=== PATIENT | female | born 1950 | race Caucasian/White ===

== ENCOUNTER 2023-11-03 13:56 | Emergency (ER) | payer MEDICARE, OTHER, SELFPAY ==
[2023-11-03 13:58] VITALS: BP 155/100
--- NOTE | 2023-11-03 15:11 | ED.GENMED ---
History of Present Illness
<Jeannette Bentley PA-C - Last Filed: 11/03/23 18:48>
General
Chief Complaint: Cough
Source: patient
Exam Limitations: none
Time Seen by Provider: 11/03/23 15:10
Nursing documentation reviewed up to this point in time: agreed with
Travel History
Have you had any contact with someone who has COVID-19?: No
Do you have any symptoms of coronavirus? Fever > 100 degrees, chills, cough, shortness of breath, sore throat, loss of taste or smell, muscle aches, or headache?: No
History of Present Illness
History of Present Illness:
73-year old female with past medical history of hyperlipidemia, chronic bronchitis that has since apparently resolved, presenting to the emergency department today with persistent cough and cold like symptoms for the past 5 days. Patient states
that while she has had bad colds before, she has never had this much sputum production. Patient states that she has been coughing up yellow and green sputum. She denies hemoptysis. Also states that she has had excessive fatigue and chills.
Patient denies any fever. Patient denies any swelling in her lower legs. Patient denies any recent long distance travel. Patient states that she has occasional pain in her chest if she has been coughing a lot. Patient denies any abdominal pain,
nausea, vomiting. Patient has been seen by urgent care was negative for COVID and flu.
Past History
<Jeannette Bentley PA-C - Last Filed: 11/03/23 18:48>
Past History
ED Past Medical History: None
ED Past Surgical History: Gynecological
Social History
Tobacco: Non-smoker
Alcohol: None
Drug: None
Personal:
Living: with family
Review of Systems
<Jeannette Bentley PA-C - Last Filed: 11/03/23 18:48>
Review of Systems
All Other Systems: ROS reviewed and negative except as documented in HPI and ROS
Phy Exam
<Jeannette Bentley PA-C - Last Filed: 11/03/23 18:48>
Physical Exam
Physical Exam:
Vitals: Patient's vital signs are stable
General: Patient is well-appearing in no acute distress
Skin: Skin is warm and dry, no rashes or lesions
Head: normocephalic, atraumatic
Eyes: EOMs intact. PERRLA. Bilateral conjunctival clear. No scleral erythema.
Throat: Mild pharyngeal erythema. No tonsillar hypertrophy, no exudates.
Neck: No cervical lymphadenopathy
Cardiac: Regular rate and rhythm, no murmurs
Pulm: Normal respiratory effort, no wheezes rales or rhonchi
Abdomen: No abdominal tenderness
Neuro: Cranial nerves II through XII intact, no focal neurologic deficits.
Course
<Jeannette Bentley PA-C - Last Filed: 11/03/23 18:48>
Orders/Labs/Results
Orders:
Orders
11/03/23 15:31
CR Chest - 2 Views Urgent
Comment:
Reason For Exam: shortness of breath
11/03/23 15:57
Ipratropium/Albuterol Sulfate [Duoneb] 3 ml INH R NOW STA
11/03/23 16:46
Complete Blood Count/With Diff Urgent
Comprehensive Metabolic Panel Urgent
11/03/23 18:16
Dexamethasone Sod Phosphate [Decadron] 10 mg IV NOW STA
Abnormal Lab Results
11/03/23
16:46
RBC 3.90 L 10^6/uL
(4.20-5.40)
MCH 32.3 H pg
(27.0-31.0)
Absolute Monos (auto) 0.8 H 10^3/uL
(0.1-0.6)
Glucose 104 H mg/dl
(70-99)
Total Protein 6.0 L g/dl
(6.3-8.2)
11/03/23 16:46
11/03/23 16:46
Vital Signs
Initial and Last Documented VS:
Initial Vital Signs
Temp Pulse Resp BP Pulse Ox
98.1 F 80 18 155/100 98
11/03/23 13:58 11/03/23 13:58 11/03/23 13:58 11/03/23 13:58 11/03/23 13:58
Last Documented Vital Signs
Temp Pulse Resp BP Pulse Ox
98.1 F 79 18 130/79 99
11/03/23 13:58 11/03/23 18:29 11/03/23 18:29 11/03/23 18:29 11/03/23 18:29
<Matthew Loera, DO - Last Filed: 11/03/23 18:20>
Orders/Labs/Results
Orders:
Orders
11/03/23 15:31
CR Chest - 2 Views Urgent
Comment:
Reason For Exam: shortness of breath
11/03/23 15:57
Ipratropium/Albuterol Sulfate [Duoneb] 3 ml INH R NOW STA
11/03/23 16:46
Complete Blood Count/With Diff Urgent
Comprehensive Metabolic Panel Urgent
11/03/23 18:16
Dexamethasone Sod Phosphate [Decadron] 10 mg IV NOW STA
Abnormal Lab Results
11/03/23
16:46
RBC 3.90 L 10^6/uL
(4.20-5.40)
MCH 32.3 H pg
(27.0-31.0)
Absolute Monos (auto) 0.8 H 10^3/uL
(0.1-0.6)
Glucose 104 H mg/dl
(70-99)
Total Protein 6.0 L g/dl
(6.3-8.2)
11/03/23 16:46
11/03/23 16:46
Vital Signs
Initial and Last Documented VS:
Initial Vital Signs
Temp Pulse Resp BP Pulse Ox
98.1 F 80 18 155/100 98
11/03/23 13:58 11/03/23 13:58 11/03/23 13:58 11/03/23 13:58 11/03/23 13:58
Last Documented Vital Signs
Temp Pulse Resp BP Pulse Ox
98.1 F 79 18 130/79 99
11/03/23 13:58 11/03/23 18:29 11/03/23 18:29 11/03/23 18:29 11/03/23 18:29
<Jeannette Bentley PA-C - Last Filed: 11/03/23 18:48>
MDM/Problems Addressed
Differential Diagnosis Includes:
Differentials include pneumonia, PE, respiratory tract infection, chronic bronchitis
MDM/Problems Addressed:
cough and cold symptoms
Chronic conditions affecting care: HTN and Other (Hypothyroidism, hyperlipidemia)
Acute Exacerbation and/or Progression of Chronic Illness: HTN
<Jeannette Bentley PA-C - Last Filed: 11/03/23 18:48>
*Pulse Oximetry
Patient hypoxic: no
*Critical Care Note
Total Time (30-74mins, 75-104mins- exclusive of procedures): Not Applicable
Data Reviewed
Review of Other/Old Records Reveals: Records (Reviewed previous records from ER physician documentation 12/29/2021, reviewed ER physician mentation from 12/23/2019)
Source: patient and records
Prescriptions/Medications Considered But Not Given:
Considered D-dimer however patient has no PE risk factors, her vital signs are stable, and there is a alternative diagnosis to explain her symptoms.
<Jeannette Bentley PA-C - Last Filed: 11/03/23 18:48>
Patient Management
Escalation/DeEscalation of care consider admission/obs:
73-year old female with past medical history of hyperlipidemia, chronic bronchitis that has since apparently resolved, presenting to the emergency department today with persistent cough and cold like symptoms for the past 5 days. Patient on exam
has mild wheezing heard and conversational dyspnea. Her vital signs are stable, she is afebrile, not hypoxic. Her CBC and CMP are unremarkable, her chest x-ray is negative for any acute cardiopulmonary process. Tried a DuoNeb treatment for this
patient, she states that this did not help her symptoms and made her cough worse. Patient states that Tessalon Perles do not work with her cough, and she states that [id number] cough medications do not help her either. We will send a steroid
Dosepak to her pharmacy at this point, considering other methods have not helped with her cough and cold-like symptoms. Symptoms likely due to possible acute on chronic bronchitis. Patient stable for discharge.
ED Attending Note
<Jeannette Bentley PA-C - Last Filed: 11/03/23 18:48>
-
Portions of this chart may have been created with voice recognition software.� Occasional wrong word or��sound alike� substitutions may have occurred due to the inherent limitations of voice recognition software.
<Matthew Loera DO - Last Filed: 11/03/23 18:20>
ED Attending Note
Patient seen and examined by attending physician: Yes
I performed the substantive portion of visit, reviewed & personally made and approve the management plan that is documented in note by myself or MAGALIE.: Yes
ED Attending Note:
73-year-old female cough congestion body aches productive sputum negative COVID and flu at an urgent care wheezing here better with nebs imaging noted sounds like bronchitis, will treat with a short course of steroids sideration for short course of
antibiotics due to change in sputum
Discharge Plan
Departure
Patient Disposition: Home (Routine Discharge)
Date of Disposition: 11/03/23
Time of Disposition: 18:17
Patient with high blood pressure during this ER visit?: Yes
Condition: Good
Discharge Problem:
Acute bronchitis
Instructions: Acute Bronchitis, Adult (DC), Cough, Adult (DC), BLOOD PRESSURE
Prescriptions:
New
methylprednisolone [Medrol (Harshal)] 4 mg tablets,dose pack
See Rx Instructions .ROUTE .COMPLEX Qty: 21 0RF
Rx Instructions:
orally per package directions
doxycycline hyclate 100 mg capsule
100 mg PO DAILY Qty: 5 0RF
No Action
levofloxacin 500 MG tablet
500 mg PO DAILY
Patient Comments:
patient to take for 10 days
albuterol sulfate 1 PUFF HFA aerosol inhaler
2 puff inhalation R Q4HPRN PRN (Reason: SOB)
fluticasone propionate 1 SPRAY spray,suspension
2 spray intranasal BID
ibuprofen 200 MG tablet
200 mg PO Q4HPRN PRN (Reason: pain)
omeprazole 20 MG capsule,delayed release(DR/EC)
20 mg PO DAILY
benzonatate 100 MG capsule
100 mg PO TIDPRN PRN (Reason: recurrent cough) Qty: 20 0RF
albuterol sulfate [Proventil HFA] 90 MCG/PUFF HFA aerosol inhaler
1 puff inhalation Q4HPRN PRN (Reason: shortness of breath) Qty: 1 0RF
Referrals:
Dannie Chavarria MD [Family Provider] -
Activity Restrictions/Additional Instructions:
We have sent Medrol Dosepak to your pharmacy. Please follow package instructions for dosing.
Please return emergency department for any new or worsening symptoms, chest pain, worsening of your shortness of breath, fevers or chills, dizziness, lightheadedness, weakness, or any other concerns.
Please follow-up with your primary care provider.
Interventions
Interventions:
*Risk Screen - Suicide Last Done: 11/03/23 13:58
*General Assessment Last Done: 11/03/23 13:58
*Neglect/Abuse Screening Last Done: 11/03/23 13:58
ED- Fall Risk Assessment Last Done: 11/03/23 18:15
*ED COVID-19 Vaccine History Last Done: 11/03/23 13:58
*Nursing Disposition Last Done: 11/03/23 18:44
ED- Pulmonary Assessment Last Done: 11/03/23 18:15
Discharge Date and Time
Discharge Date/Time: 11/03/23 18:44
Print Language: KYRGYZ
[2023-11-03] MEDS: DUONEB 3 ML INH (16:53)
[2023-11-03 16:56] LABS: % Basophils 0.5 % (0-2); % Eosinophils 1.3 % (0-6); % Immature Granulocytes 0.2 % (0-0.5); % Lymphocytes 23.2 % (20.5-51.1); % Monocytes 8.5 % (1.7-9.3); % Neutrophils 66.3 % (42.2-75.2); Absolute Basophils 0.1 10^3/uL (0-0.2); Absolute Eosinophils 0.1 10^3/uL (0-0.7); Absolute Lymphocytes 2.3 10^3/uL (1.2-3.4); Absolute Monocytes 0.8 10^3/uL (0.1-0.6); Absolute Neutrophils 6.4 10^3/uL (1.4-6.5); Hematocrit 37.1 % (37.0-47.0); Hemoglobin 12.6 g/dL (12.0-16.0); Mean Corpuscular Hgb 32.3 pg (27.0-31.0); Mean Corpuscular Volume 95.1 fL (81.0-99.0); Nucleated Red Blood Cells % 0 %; Platelet Count 172 10^3/uL (130-400); Red Cell Dist. Width 12.8 % (11.5-14.5); White Blood Cell Count 9.7 10^3/uL (4.8-10.8)
[2023-11-03 17:15] LABS: ALT (SGPT) 21 U/L (0-35); AST (SGOT) 30 U/L (14-36); Albumin 3.9 g/dl (3.5-5.0); Alkaline Phosphatase 46 U/L (38-126); Blood Urea Nitrogen 16 mg/dl (7-17); Calcium 9.9 mg/dl (8.4-10.2); Carbon Dioxide 30 mmol/L (22-30); Chloride 102 mmol/L (98-107); Glucose 104 mg/dl (70-99); Potassium 4.4 mmol/L (3.5-5.1); Sodium 136 mmol/L (135-145); Total Bilirubin 0.4 mg/dl (0.2-1.3); eGFR > 60.00
[2023-11-03] MEDS: DECADRON 10 MG IV (18:25)
[2023-11-03 18:29] VITALS: BP 130/79
== END 2023-11-03 18:44 | disposition home or self-care (01) ==
LOC: EMR 13:56
PROVIDERS: Physician Assistant; EMERGENCY PHYSICIAN Emergency Medicine; FAMILY PHYSICIAN Family Medicine
DX: J20.9 Acute bronchitis, unspecified (principal); E78.00 Pure hypercholesterolemia, unspecified
CPT/HCPCS: 99283; 94640; 96374; 71046; 80053; 85025

== ENCOUNTER 2024-06-02 21:45 | Emergency (ER) | payer MEDICARE, OTHER, SELFPAY ==
[2024-06-02 21:47] VITALS: BP 167/98
--- NOTE | 2024-06-02 22:14 | ED.GENMED ---
History of Present Illness
General
Chief Complaint: Abdominal Symptoms
Source: patient
Exam Limitations: none
Time Seen by Provider: 06/02/24 21:58
History of Present Illness
History of Present Illness:
This is a 73 year old female that comes in with c/o constipation. State that she had facial surgery last Sunday. States that the first 2 days she had a normal BM. States that she has not move her bowel since . States that she has take stool
softeners, Miralax and she did a fleets enema today and Magnesium citrate and has not had any results. States that she has had some nausea and is still a little woozy. States that she has not used anything for pain other then Tylenol. Denies any
fever, chest pain, SOB, abd pain, vomiting, diarrhea, headache, urinary burning.
Past History
Past History
ED Past Medical History: Hypercholesterolemia, Hypothyroidism and Other (Chronic Bronchitis, Sinusitis, )
ED Past Surgical History: Gynecological (Left Oophrectomy, Hysterectomy, ) and Other (Cataract, Facial surgery Plastic)
Social History
Tobacco: Former smoker
Alcohol: None
Drug: None
Personal:
Living: with family
Review of Systems
Review of Systems
All Other Systems: ROS reviewed and negative except as documented in HPI and ROS
Constitutional: Reports chills; Denies fever
EENT: Reports no symptoms
Respiratory: Reports no symptoms; Denies cough or trouble breathing
Cardiac: Reports no symptoms; Denies chest pain
ABD/GI: Reports nausea and constipated; Denies abdominal pain, vomiting or diarrhea
: Reports no symptoms; Denies dysuria, frequency or urgency
Musculoskeletal: Reports no symptoms
Skin: Reports no symptoms
Neurological: Reports other (woozy); Denies headache
Psychiatric: Reports no symptoms
Phy Exam
General Physical Exam
General Presentation: no apparent distress
General age: appears stated age
General Skin: warm and dry
General Habitus: elderly
General Mental: alert
General Hydration: appears well hydrated
ENT Exam
ENT Exam: TM's normal, pharynx normal and neck supple
Eye Exam
Eye Exam: EOMI
Cardiovascular Exam
Cardiovascular Exam: regular rate/rhythm, no edema and normal peripheral pulses
Pulmonary Exam
Pulmonary Exam: lungs clear, no respiratory distress, no rales, chest non tender, no crackles, no rhonchi, no wheezing and no cough
Gastrointestinal Exam
Gastrointestinal Exam: normal bowel sounds, non tender, soft, no organomegaly, no pulsatile mass, non distended and other (Stool removed from Rectum and patient is in BR at this time. )
Musculoskeletal Exam
Musculoskeletal Exam: full ROM and no edema
Skin Exam
Skin Exam: normal color, warm/dry, no petechia and other (Contusion noted around eyes with incision lines on upper lids. Suture with doc noted along hair line on the temporal area. All dry and clean)
Psychiatric Exam
Psychiatric Exam: normal mood/affect
Course
Orders/Labs/Results
Orders:
Orders
06/02/24 22:21
Enema- Treatment ONCE
Type: Milk of Molasses
06/02/24 23:29
Ondansetron Orally Disint [Zofran Odt (Orally Disintegrating)] 4 mg PO NOW STA
06/02/24 23:36
Acetaminophen [Tylenol] 1,000 mg PO NOW STA
Vital Signs
Initial and Last Documented VS:
Initial Vital Signs
Temp Pulse Resp BP Pulse Ox
98.2 F 87 20 167/98 97
06/02/24 21:47 06/02/24 21:47 06/02/24 21:47 06/02/24 21:47 06/02/24 21:47
Last Documented Vital Signs
Temp Pulse Resp BP Pulse Ox
98.2 F 87 18 167/98 97
06/02/24 21:47 06/02/24 21:47 06/02/24 22:46 06/02/24 21:47 06/02/24 21:47
MDM/Problems Addressed
Differential Diagnosis Includes:
Constipation
MDM/Problems Addressed:
This is a 73 year old female that comes in with c/o constipation. States that she has not had a BM since
Rectal exam done and moderate amount of soft stool removed. Patient was able to move more stool but feels she is still constipated. Will give patient an enema. .
Back into see patient. States that the enema worked but she feels nauseated. Will give Zofran and Tylenol which she states she has not had for awhile. Will discharge patient home after this.
Chronic conditions affecting care:
NA
Acute Exacerbation and/or Progression of Chronic Illness:
NA
*Pulse Oximetry
Patient hypoxic: no
*EKG
Interpreted by ED Provider?: NA
Rate: EKG- N/A
*Green Chain Worker Interpretation
Rate: Green Chain Worker- N/A
*Critical Care Note
Total Time (30-74mins, 75-104mins- exclusive of procedures): Not Applicable
ED Attending Note
-
Portions of this chart may have been created with voice recognition software.� Occasional wrong word or��sound alike� substitutions may have occurred due to the inherent limitations of voice recognition software.
Discharge Plan
Departure
Patient Disposition: Home (Routine Discharge)
Date of Disposition: 06/02/24
Time of Disposition: 23:37
Patient with high blood pressure during this ER visit?: Yes
Condition: Good
Covid-19: Not Applicable
Discharge Problem:
Acute constipation
Instructions: Constipation, Adult (DC), BLOOD PRESSURE
Prescriptions:
No Action
levofloxacin 500 MG tablet
500 mg PO DAILY
Patient Comments:
patient to take for 10 days
albuterol sulfate 1 PUFF HFA aerosol inhaler
2 puff inhalation R Q4HPRN PRN (Reason: SOB)
fluticasone propionate 1 SPRAY spray,suspension
2 spray intranasal BID
ibuprofen 200 MG tablet
200 mg PO Q4HPRN PRN (Reason: pain)
omeprazole 20 MG capsule,delayed release(DR/EC)
20 mg PO DAILY
benzonatate 100 MG capsule
100 mg PO TIDPRN PRN (Reason: recurrent cough) Qty: 20 0RF
albuterol sulfate [Proventil HFA] 90 MCG/PUFF HFA aerosol inhaler
1 puff inhalation Q4HPRN PRN (Reason: shortness of breath) Qty: 1 0RF
methylprednisolone [Medrol (Harshal)] 4 mg tablets,dose pack
See Rx Instructions .ROUTE .COMPLEX Qty: 21 0RF
Rx Instructions:
orally per package directions
doxycycline hyclate 100 mg capsule
100 mg PO DAILY Qty: 5 0RF
Referrals:
Dannie Chavarria MD [Family Provider] - As needed
Activity Restrictions/Additional Instructions:
As discussed, please increase your water intake to 8-8oz glasses daily. You may also try Prune juice and mix this with apple juice in equal amounts and heat and drink daily. Continue with your stool softeners and Miralax. Follow up with the family
doctor as needed. IF YOU HAVE ANY OTHER CONCERNS PLEASE RETURN TO THE EMERGENCY ROOM.
Interventions
Interventions:
*Risk Screen - Suicide Last Done: 06/02/24 22:45
*General Assessment Last Done: 06/02/24 21:47
*Neglect/Abuse Screening Last Done: 06/02/24 22:45
*ED COVID-19 Vaccine History Last Done: 06/02/24 22:45
EO-Fvpawb-Xynusocfnf Assessment Last Done: 06/02/24 22:21
Discharge Date and Time
Print Language: DOMINICAN
[2024-06-02] MEDS: TYLENOL 1000 MG PO (23:43)
[2024-06-02] MEDS: ZOFRAN ODT (ORALLY DISINTEGRATING) 4 MG PO (23:44)
[2024-06-02 23:47] VITALS: BP 155/86
== END 2024-06-02 23:59 | disposition home or self-care (01) ==
LOC: EMR 21:45
PROVIDERS: EMERGENCY PHYSICIAN Emergency Medicine; FAMILY PHYSICIAN Family Medicine
DX: K59.09 Other constipation (principal); R03.0 Elevated blood-pressure reading, without diagnosis of hypertension; Z87.891 Personal history of nicotine dependence
CPT/HCPCS: 99283

== ENCOUNTER 2024-07-29 13:04 | Emergency (ER) | payer MEDICARE, OTHER, SELFPAY ==
[2024-07-29 13:27] VITALS: BP 149/84; BMI 26.6
--- NOTE | 2024-07-29 14:51 | ED.GENMED ---
History of Present Illness
General
Chief Complaint: DVT/Possible Blood Clot
Source: patient
Exam Limitations: none
Time Seen by Provider: 07/29/24 13:54
Nursing documentation reviewed up to this point in time: agreed with
History of Present Illness
History of Present Illness:
74-year-old female with a history of recent cervical radiculopathy, attending physical therapy today mentioned that last night she developed pain behind her left knee, while at physical therapy 2 separate people checked the knee and when they were
pressing behind her knee and her upper calf it was tender so they sent her here to rule out DVT patient denies chest pain or trouble breathing.
Past History
Past History
ED Past Medical History: Hypercholesterolemia, Hypothyroidism and Other (Chronic Bronchitis, Sinusitis, )
ED Past Surgical History: Gynecological (Left Oophrectomy, Hysterectomy, ) and Other (Cataract, Facial surgery Plastic)
Social History
Tobacco: Former smoker
Alcohol: None
Drug: None
Personal:
Living: with family
Review of Systems
Review of Systems
Allergies reviewed?: Yes
All Other Systems: ROS reviewed and negative except as documented in HPI and ROS
Constitutional: Denies fever
Respiratory: Denies trouble breathing
Cardiac: Denies chest pain
ABD/GI: Denies abdominal pain
Musculoskeletal: Reports neck pain and other (pain behind left knee); Denies edema
Skin: Reports no symptoms
Neurological: Reports no symptoms
Phy Exam
Physical Exam
Physical Exam:
GENERAL: No acute distress. A&Ox3.
CONSTITUTIONAL: Afebrile.
EYES: clear, conjunctivae normal
ENMT: moist mucus membranes
RESPIRATORY: Regular respirations, nonlabored, lungs clear.
CARDIOVASCULAR: Regular rate and rhythm, no murmurs, no rubs.
MUSCULOSKELETAL: Mild tenderness left popliteal area, distal neurovascular intact. Moves with ease. Well perfused.
SKIN: Warm, dry, pink
PSYCH: Normal mood and affect. Well kept, interactive and appropriate
NEUROLOGIC: Awake, alert and oriented. No focal neurological deficits
Course
Orders/Labs/Results
Orders:
Orders
07/29/24 13:06
US Periph Venous LOWER Ext LT Urgent
Comment:
Reason For Exam: pain, swelling
Vital Signs
Initial and Last Documented VS:
Initial Vital Signs
Temp Pulse Resp BP Pulse Ox
97.7 F 68 16 149/84 98
07/29/24 13:27 07/29/24 13:27 07/29/24 13:27 07/29/24 13:27 07/29/24 13:27
Last Documented Vital Signs
Temp Pulse Resp BP Pulse Ox
97.7 F 68 16 149/84 98
07/29/24 13:27 07/29/24 13:27 07/29/24 13:27 07/29/24 13:27 07/29/24 15:14
MDM/Problems Addressed
Differential Diagnosis Includes:
DVT, Mota's cyst, muscle strain
MDM/Problems Addressed:
74-year-old female with a history of recent cervical radiculopathy, attending physical therapy today mentioned that last night she developed pain behind her left knee, while at physical therapy 2 separate people checked the knee and when they were
pressing behind her knee and her upper calf it was tender so they sent her here to rule out DVT patient denies chest pain or trouble breathing.
Ultrasound shows no DVT or other abnormality noted, patient reassured and is stable for discharge
*Critical Care Note
Total Time (30-74mins, 75-104mins- exclusive of procedures): Not Applicable
ED Attending Note
-
Portions of this chart may have been created with voice recognition software.� Occasional wrong word or��sound alike� substitutions may have occurred due to the inherent limitations of voice recognition software.
Discharge Plan
Departure
Patient Disposition: Home (Routine Discharge)
Date of Disposition: 07/29/24
Time of Disposition: 14:49
Patient with high blood pressure during this ER visit?: No
Condition: Good
Discharge Problem:
Acute pain of left knee
Instructions: Knee pain - ED discharge instructions
Prescriptions:
No Action
levofloxacin 500 MG tablet
500 mg PO DAILY
Patient Comments:
patient to take for 10 days
albuterol sulfate 1 PUFF HFA aerosol inhaler
2 puff inhalation R Q4HPRN PRN (Reason: SOB)
fluticasone propionate 1 SPRAY spray,suspension
2 spray intranasal BID
ibuprofen 200 MG tablet
200 mg PO Q4HPRN PRN (Reason: pain)
omeprazole 20 MG capsule,delayed release(DR/EC)
20 mg PO DAILY
benzonatate 100 MG capsule
100 mg PO TIDPRN PRN (Reason: recurrent cough) Qty: 20 0RF
albuterol sulfate [Proventil HFA] 90 MCG/PUFF HFA aerosol inhaler
1 puff inhalation Q4HPRN PRN (Reason: shortness of breath) Qty: 1 0RF
methylprednisolone [Medrol (Harshal)] 4 mg tablets,dose pack
See Rx Instructions .ROUTE .COMPLEX Qty: 21 0RF
Rx Instructions:
orally per package directions
doxycycline hyclate 100 mg capsule
100 mg PO DAILY Qty: 5 0RF
Referrals:
Your, Doctor [Other] - As needed
Activity Restrictions/Additional Instructions:
As we discussed, your ultrasound is negative for a clot. You may have strained the ligaments/tendons or muscles about the back of your knee.
Interventions
Interventions:
*Risk Screen - Suicide Last Done: 07/29/24 13:27
*General Assessment Last Done: 07/29/24 15:14
*Neglect/Abuse Screening Last Done: 07/29/24 13:27
*ED COVID-19 Vaccine History Last Done: 07/29/24 13:27
*Nursing Disposition Last Done: 07/29/24 15:18
ED- Cardiac Assessment Last Done: 07/29/24 15:14
ED- Pulmonary Assessment Last Done: 07/29/24 15:14
ED-Peripheral Vascular Assessment Last Done: 07/29/24 15:14
ED-Skin Assessment Last Done: 07/29/24 15:14
Discharge Date and Time
Discharge Date/Time: 07/29/24 15:18
Print Language: PUERT[place] RICAN
== END 2024-07-29 15:18 | disposition home or self-care (01) ==
LOC: EMR 13:04
PROVIDERS: EMERGENCY PHYSICIAN Emergency Medicine; FAMILY PHYSICIAN Family Medicine
DX: M25.562 Pain in left knee (principal); E03.9 Hypothyroidism, unspecified; E78.00 Pure hypercholesterolemia, unspecified; Z87.891 Personal history of nicotine dependence
CPT/HCPCS: 99284; 93971

== ENCOUNTER 2024-08-19 11:52 | Inpatient (IN) | payer MEDICARE, OTHER, SELFPAY ==
[2024-08-19] VITALS (44 sets, daily range): BP systolic 80–134; BP diastolic 48–108; BMI 27.8
[2024-08-19 09:31] LABS: % Basophils 0.5 % (0-2); % Eosinophils 1.2 % (0-6); % Immature Granulocytes 0.3 % (0-0.5); % Lymphocytes 35.6 % (20.5-51.1); % Monocytes 8.7 % (1.7-9.3); % Neutrophils 53.7 % (42.2-75.2); Absolute Eosinophils 0.1 10^3/uL (0-0.7); Absolute Lymphocytes 3.2 10^3/uL (1.2-3.4); Absolute Monocytes 0.8 10^3/uL (0.1-0.6); Absolute Neutrophils 4.8 10^3/uL (1.4-6.5); Hematocrit 39.6 % (37.0-47.0); Hemoglobin 13.3 g/dL (12.0-16.0); Mean Corp Hgb Conc. 33.6 g/dL (33.0-37.0); Mean Corpuscular Hgb 32.3 pg (27.0-31.0); Mean Corpuscular Volume 96.1 fL (81.0-99.0); Mean Platelet Volume 10.2 fL (7.4-10.4); Nucleated Red Blood Cells % 0 %; Platelet Count 169 10^3/uL (130-400); Red Blood Cell Count 4.12 10^6/uL (4.20-5.40); Red Cell Dist. Width 12.9 % (11.5-14.5); White Blood Cell Count 8.9 10^3/uL (4.8-10.8)
--- NOTE | 2024-08-19 09:34 | ED.GENMED ---
History of Present Illness
General
Chief Complaint: Cardiac Symptoms
Source: patient and spouse
Exam Limitations: none
Time Seen by Provider: 08/19/24 09:19
Nursing documentation reviewed up to this point in time: agreed with
History of Present Illness
History of Present Illness:
74-year-old female presents emergency department due to chest tightness and shortness of breath. This began at 630 this morning.
Past History
Past History
ED Past Medical History: Hypercholesterolemia, Hypothyroidism and Other (Chronic Bronchitis, Sinusitis, )
ED Past Surgical History: Gynecological (Left Oophrectomy, Hysterectomy, ) and Other (Cataract, Facial surgery Plastic)
Social History
Tobacco: Former smoker
Alcohol: None
Drug: None
Personal:
Living: with family
Review of Systems
Review of Systems
Allergies reviewed?: Yes
All Other Systems: Not applicable
Constitutional: Reports no symptoms
EENT: Reports no symptoms
Respiratory: Reports trouble breathing
Cardiac: Reports chest pain and palpitations
ABD/GI: Reports no symptoms
: Reports no symptoms
Musculoskeletal: Reports no symptoms
Skin: Reports no symptoms
Neurological: Reports no symptoms
Endocrine: Reports no symptoms
Hematologic/Lymphatic: Reports no symptoms
Psychiatric: Reports no symptoms
Phy Exam
Physical Exam
Physical Exam:
Physical Exam
General: Afebrile
Neck: supple. no meningeal signs. normal posterior pharynx
Heart: s1/s2 tachycardia, irregular rhythm, no murmur. equal radial
pulses.
HEENT: Pupils equal round reactive to light, EOMI
Lungs: no acute respiratory distress. clear bilaterally
Abdomen: normal bowel sounds. not tender. no CVAT
Neuro: alert and oriented. no focal neurological deficits cranial nerves II through XII intact
Skin: no rash
Psychiatric: well kept. interactive and cooperative
Extremities: no edema. no calf tenderness. negative homans. good distal pulses
Course
Orders/Labs/Results
Orders:
Orders
08/19/24 08:58
ECG [Electrocardiogram (*1)] Urgent
Reason for Study: Chest Pain
EKG- Treatment ONCE
08/19/24 09:21
IV Insert/Care/Rem.- Treatment PRN
08/19/24 09:22
Complete Blood Count/With Diff Urgent
Comprehensive Metabolic Panel Urgent
08/19/24 09:31
Cardiac Monitoring- Treatment ONCE
Diltiazem 125 mg/125 ml Nss [Cardizem] 125 mg in 125 ml IV NOW
Initial dose in mg/hr, then titrate:: 5
Titrate to keep:: Heart rate 80-100 bpm
Titrate by mg/hr:: 5 mg/hr
Frequency of titrations (minutes):: 15
Maximum dose in mg/hr:: 15
Diltiazem HCl [Cardizem] 5 mg IV NOW STA
08/19/24 09:32
CR Chest Portable - 1 View Urgent
Comment:
Reason For Exam: short of breath
Reason Study Needs to be Portable: Patient Unstable
08/19/24 09:33
0.9% Sodium Chloride 500 ml [Nss] 500 ml IV BOLUS
08/19/24 09:45
Troponin I Urgent
Abnormal Lab Results
08/19/24 08/19/24
09:22 09:45
RBC 4.12 L 10^6/uL
(4.20-5.40)
MCH 32.3 H pg
(27.0-31.0)
Absolute Monos (auto) 0.8 H 10^3/uL
(0.1-0.6)
Creatinine 0.5 L mg/dL
(0.6-1.0)
Glucose 118 H mg/dl
(70-99)
Troponin I 0.048 H* ng/ml
08/19/24 09:22
08/19/24 09:22
Vital Signs
Initial and Last Documented VS:
Initial Vital Signs
Temp Pulse Resp BP Pulse Ox
98.2 F 149 18 94/55 98
08/19/24 09:08 08/19/24 09:08 08/19/24 09:08 08/19/24 09:08 08/19/24 09:08
Last Documented Vital Signs
Temp Pulse Resp BP Pulse Ox
98.2 F 104 22 85/67 99
08/19/24 09:08 08/19/24 10:40 08/19/24 10:40 08/19/24 10:30 08/19/24 10:40
MDM/Problems Addressed
Differential Diagnosis Includes:
Rapid atrial fibrillation, CHF
MDM/Problems Addressed:
74-year-old female with rapid atrial fibrillation, diltiazem drip. Will discuss with cardiology about anticoagulation.
*Radiology
Radiology exam reviewed: radiology read reviewed (Chest x-ray no acute findings)
*Pulse Oximetry
Patient hypoxic: no
*EKG
Interpreted by ED Provider?: Yes
EKG Intrepretation Date: 08/19/24
EKG Intrepretation Time: 09:02
Interpretation: abnormal
Comparison EKG: no comparison EKG present
Heart Rate: 149
Rate: tachycardiac
Rhythm: a-fib
[place]: normal axis
Interval: normal interval
QRS Pattern: normal QRS
Ischemia: no ischemia
*Wheel Inspector Interpretation
Rate: tachycardiac
Interpretation: abnormal
Heart Rate: 150
Rhythm: a-fib
*Critical Care Note
Total Time (30-74mins, 75-104mins- exclusive of procedures): 30
comment:
Critical care statement: A total of 30 minutes of critical care time was provided for this patient. This includes management of unstable vital signs, evaluation of the patient at bedside, reviewing the patient's pertinent medical records, discussion
with consultants, review of old EKGs and review of pertinent medical records. This time with separate from time utilized to perform the aforementioned documented procedures
Patient Management
Social determinants of health affecting care: Living situation
Discussion with other providers: Hospitalist and Public Health Policy Analyst (cardiology, Dr. Maurice)
Escalation/DeEscalation of care consider admission/obs:
admit indicated
ED Attending Note
-
Portions of this chart may have been created with voice recognition software.� Occasional wrong word or��sound alike� substitutions may have occurred due to the inherent limitations of voice recognition software.
Discharge Plan
Departure
Patient Disposition: Admit
Date of Disposition: 08/19/24
Time of Disposition: 10:57
Admit to: IMU
Presentation/result/management discussed w/ accepting MD/DO: Hospitalist
Patient with high blood pressure during this ER visit?: No
Condition: Fair
Discharge Problem:
Atrial fibrillation with RVR
Prescriptions:
No Action
biotin 5 mg Capsule
5 mg PO DAILY
cyanocobalamin (vitamin B-12) 1,000 mcg Tablet
1,000 mcg PO DAILY
Theragen Tablet
1 tab PO DAILY
aspirin 81 mg Tablet,Delayed Release (Dr/Ec)
81 mg PO DAILY
vitamin A 3,000 mcg (10,000 unit) Capsule
3,000 mcg PO DAILY
calcium carbonate [Calcium 500] 500 mg calcium (1,250 mg) Tablet
500 mg PO DAILY
ascorbic acid (vitamin C) [Vitamin C] 500 mg Tablet
500 mg PO DAILY
lithium carbonate 300 mg Capsule
300 mg PO HS
levothyroxine [Synthroid] 50 mcg Tablet
50 mcg PO DAILY
vitamin B complex [B Complete] Tablet
1 tab PO DAILY
Calcium And Magnesium 750-465 mg Tablet
1 tab PO DAILY
lysine 500 mg Tablet
500 mg PO DAILY
vitamin E 268 mg (400 unit) Capsule
268 mg PO DAILY
calcium gluconate 500 mg Tablet
500 mg PO DAILY
rosuvastatin [Crestor] 20 mg Tablet
20 mg PO QPM
cholecalciferol (vitamin D3) [Vitamin D3] 25 mcg (1,000 unit) Tablet
25 mcg PO DAILY
Cholest Off Plus 450 mg Capsule
450 mg PO DAILY
Referrals:
Dannie Chavarria MD [Family Provider] -
Interventions
Interventions:
*Risk Screen - Suicide Last Done: 08/19/24 09:08
*General Assessment Last Done: 08/19/24 09:08
*Neglect/Abuse Screening Last Done: 08/19/24 09:08
ED- Fall Risk Assessment Last Done: 08/19/24 09:20
*ED COVID-19 Vaccine History Last Done: 08/19/24 09:08
ED- Pulmonary Assessment Last Done: 08/19/24 09:20
ED- Cardiac Assessment Last Done: 08/19/24 09:20
Discharge Date and Time
Print Language: CAMEROONIAN
[2024-08-19] MEDS: CARDIZEM 5 MG IV (09:44)
[2024-08-19] MEDS: NSS 500 IV (09:44)
[2024-08-19] MEDS: CARDIZEM 125 IV ×3 (09:44→22:26)
[2024-08-19 09:54] LABS: ALT (SGPT) 22 U/L (0-35); AST (SGOT) 32 U/L (14-36); Albumin 4.1 g/dl (3.5-5.0); Alkaline Phosphatase 44 U/L (38-126); Blood Urea Nitrogen 17 mg/dl (7-17); Calcium 9.4 mg/dl (8.4-10.2); Carbon Dioxide 24 mmol/L (22-30); Chloride 107 mmol/L (98-107); Estimated Creatinine Clearance 78 ml/min; Glucose 118 mg/dl (70-99); Sodium 140 mmol/L (135-145); Total Bilirubin 0.3 mg/dl (0.2-1.3); Total Protein 6.3 g/dl (6.3-8.2); eGFR > 60.00
[2024-08-19 10:35] LABS: Troponin I 0.048 ng/ml
--- NOTE | 2024-08-19 11:43 | HPS.HSE ---
Family Physician
-
Family Physician: Dannie Chavarria
Chief Complaint
-
chest tightness, palpitations
History of Present Illness
74yo F with PMHx of ASCVD, hypothyroidism, HLD, biporar d/o came with acute onset of chest tightness and palpitations few hours before admission, that woke her up from the sleep. Chest tightness continued for hours and currently gone.Patient had a
recent sore throat 1 week ago that resolved without medications. Was tested neg for COVID-19 and strep throat in urgent care - as per patient.
Medical History
Past Medical History
Past Medical History: Reports Other
Additional Past Medical History:
see HPI
Past Surgical History: Reports None
Social History
Tobacco: Non-smoker
Alcohol: None
Drug: None
Family History
Family History: Early CAD
Allergies / Home Medications
Allergies reflects when Allergies were last updated in [facility].
Home Medications with original date entered in [facility]
Allergy/Medication List:
Allergies
Allergy/AdvReac Type Severity Reaction Status Date / Time
codeine Allergy passed out Verified 06/02/24 21:47
latex Allergy Rash Verified 06/02/24 21:47
Home Medications
ascorbic acid (vitamin C) 500 mg tablet (Vitamin C) 500 mg PO DAILY 08/19/24
aspirin 81 mg tablet,delayed release 81 mg PO DAILY 08/19/24
biotin 5 mg capsule 5 mg PO DAILY 08/19/24
calcium carbonate 500 mg PO DAILY 08/19/24
calcium gluconate 500 mg tablet 500 mg PO DAILY 08/19/24
calcium-magnesium 750 mg-465 mg tablet 1 tab PO DAILY 08/19/24
cholecalciferol (vitamin D3) 25 mcg (1,000 unit) tablet (Vitamin D3) 25 mcg PO DAILY 08/19/24
cyanocobalamin (vitamin B-12) 1,000 mcg tablet 1,000 mcg PO DAILY 08/19/24
levothyroxine 50 mcg tablet (Synthroid) 50 mcg PO DAILY 08/19/24
lithium carbonate 300 mg capsule 300 mg PO HS 08/19/24
lysine 500 mg tablet 500 mg PO DAILY 08/19/24
plant stanol maria del rosario 450 mg capsule (Cholest Off Plus) 450 mg PO DAILY 08/19/24
rosuvastatin 20 mg tablet (Crestor) 20 mg PO QPM 08/19/24
therapeutic multivitamin 1 tab PO DAILY 08/19/24
vitamin A 3,000 mcg (10,000 unit) capsule 3,000 mcg PO DAILY 08/19/24
vitamin B complex 1 tab PO DAILY 08/19/24
vitamin E 268 mg (400 unit) capsule 268 mg PO DAILY 08/19/24
Review of Systems
-
History Source: Patient
A 12 point ROS was completed and negative except as noted: Yes
Cardiac: Reports See HPI
Physical Exam
Vital Signs
Vital Signs
Temp Pulse Resp BP Pulse Ox
98.2 F 115 14 107/61 97
08/19/24 09:08 08/19/24 11:30 08/19/24 11:30 08/19/24 11:30 08/19/24 11:30
Physical Exam
General: Well Developed, Well Nourished and No Apparent Distress
HEENT: NormoCephalic, Anicteric and Moist mucous membranes
Respiratory: Clear; No Wheezes, Rales or Rhonchi
Cardiac: S1/S2, Irregular Rhythm and Tachycardia
GI: Soft, Non Tender and Non Distended
Musculoskeletal: No Clubbing, No Cyanosis and No Edema
Skin: Warm; No Dry or Rash
Neuro: Awake, Alert, Oriented and AO x 3
Psych: Calm
Laboratory Results
-
08/19/24 09:22
Laboratory Results
Total Bilirubin 0.3 mg/dl (0.2-1.3) 08/19/24 09:22
AST 32 U/L (14-36) 08/19/24 09:22
ALT 22 U/L (0-35) 08/19/24 09:22
Alkaline Phosphatase 44 U/L (38-126) 08/19/24 09:22
Troponin I 0.048 ng/ml H* 08/19/24 09:45
Data Reviewed
-
Diagnostic Radiology: Report Reviewed by me
Lab Data: Labs Reviewed by me
Impression/Plan
-
A/P:
#New onset Afib, symptomatic
#Troponin elevation (also can be false 2/2 patient taking biotin)
Serial trop, EKG with afib with RVR and non-specific ST abnormality
heparin drip with eventual DOAC
ASA, statin
check lipid panel, hgbA1c
check TSH
Diltizem drip
Cardiology consult
follow and replete electrolytes
#Resent sore throat
Chest XR without acute findings
check COVID-19 and influenza
check UA
#Hypothyroidism
#HLD
#B12 deficiency
#ASCVD
#Carotid stenosis
#Bipolar
cont home meds
check lithium level
DVT ppx hep drip
Full code
I have spent at least 79min reviewing chart, test results, communication with consultants and direct patient care
[2024-08-19] MEDS: ASPIRIN 325 MG PO (11:56)
[2024-08-19] MEDS: HEPARIN 25000 UNITS/250 ML IV (11:57)
[2024-08-19 12:09] LABS: APTT 35.7 Sec (23.4-35.0)
[2024-08-19 12:11] LABS: TSH Reflex To Free T4 5.83 uIU/ml (0.47-4.68)
[2024-08-19 12:25] LABS: COVID-19 Antigen Negative (Negative)
[2024-08-19 12:41] LABS: Free T4 1.09 ng/dl (0.78-2.19)
--- NOTE | 2024-08-19 13:06 | CON.CAR ---
Addendum entered and electronically signed by Cedric Camp MD 08/19/24 17:15:
I saw and examined the patient.
The French Lecturer's note was reviewed and I agree with the note.
Comment: Briefly, 74-year-old woman presenting with chest tightness and palpitations found to be in atrial fibrillation with rapid ventricular response which is a new diagnosis for her
Started on diltiazem drip with improvement in heart rate control, goal heart rate less than 110 bpm
Discussed with patient that we would monitor her overnight and if she remains in atrial fibrillation in the morning consider JACK/direct-current cardioversion
Heparin started for cardioembolic prophylaxis
Reviewed that she will need to be discharged on oral anticoagulation
Low-level troponin elevation -trend to peak
Chest discomfort has resolved with HR control
ECG with nonspecific ST depressions
Check transthoracic echocardiogram for LV function and to assess for regional wall motion abnormalities
Agree with aspirin/statin and heparin drip
Outpatient follow-up with Dr. Kumar is scheduled for later this month
Original Note:
Consultation
Consultation Request
Date/Time Consultation Requested: 08/19/2024
Date/Time Consultation Performed: 08/19/2024
Requesting Provider: Dr. Roy
Performing Provider: Leila Mota PA-C for Dr. Camp
Reason for Consultation: Atrial fibrillation
Medical History
-
History of Present Illness:
Patient is a 74-year-old female with past medical history significant for family history of premature CAD, hypothyroidism, hyperlipidemia, carotid stenosis, depression who presented to emergency department 08/19/2024 after awakening with chest
discomfort/tightness associated with palpitations and rapid heartbeat. EKG on admission to emergency department showed atrial fibrillation with rapid ventricular response. Patient was given IV diltiazem bolus then started on IV diltiazem drip.
She was found to have elevated troponin at 0.048, TSH 5.83. Chest x-ray was unremarkable with no acute cardiopulmonary disease. She was placed on IV heparin drip. At time of this evaluation patient notes improvement of palpitations and chest
discomfort although at times there is still noticeable.
Patient has been followed by Dr. Carlos Mcmullen at comprehensive cardiology at [facility] for carotid stenosis and premature family history of coronary artery disease. She reports no prior history of atrial fibrillation or arrhythmias.
Patient reports she is in the process of changing cardiology groups and has a new appointment with Dr. Lee Kumar on 08/27/2024.
Past Medical History:
Hypothyroidism
Hyperlipidemia
Depression
Family history of premature CAD
Carotid stenosis
Cervical spine osteophyte/stenosis
Past Medical History
Past Medical History: Other (see hpi)
Past Surgical History: Other (Eye lid/brow lift )
Social History
Tobacco: Non-Smoker
Alcohol: None
Drug: None
Personal:
Living: With Family
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
Family History
Family History: Early CAD
Allergies / Home Medications
Allergy/AdvReac Type Severity Reaction Status Date / Time
codeine Allergy passed out Verified 06/02/24 21:47
latex Allergy Rash Verified 06/02/24 21:47
�Medication �Instructions �Recorded �Confirmed �Type
ascorbic acid (vitamin C) 500 mg 500 mg PO DAILY 08/19/24 08/19/24 History
tablet (Vitamin C)
aspirin 81 mg tablet,delayed 81 mg PO DAILY 08/19/24 08/19/24 History
release
biotin 5 mg capsule 5 mg PO DAILY 08/19/24 08/19/24 History
calcium carbonate 500 mg PO DAILY 08/19/24 08/19/24 History
calcium gluconate 500 mg tablet 500 mg PO DAILY 08/19/24 08/19/24 History
calcium-magnesium 750 mg-465 mg 1 tab PO DAILY 08/19/24 08/19/24 History
tablet
cholecalciferol (vitamin D3) 25 25 mcg PO DAILY 08/19/24 08/19/24 History
mcg (1,000 unit) tablet (Vitamin
D3)
cyanocobalamin (vitamin B-12) 1,000 mcg PO DAILY 08/19/24 08/19/24 History
1,000 mcg tablet
levothyroxine 50 mcg tablet 50 mcg PO DAILY 08/19/24 08/19/24 History
(Synthroid)
lithium carbonate 300 mg capsule 300 mg PO HS 08/19/24 08/19/24 History
lysine 500 mg tablet 500 mg PO DAILY 08/19/24 08/19/24 History
plant stanol maria del rosario 450 mg capsule 450 mg PO DAILY 08/19/24 08/19/24 History
(Cholest Off Plus)
rosuvastatin 20 mg tablet (Crestor) 20 mg PO QPM 08/19/24 08/19/24 History
therapeutic multivitamin 1 tab PO DAILY 08/19/24 08/19/24 History
vitamin A 3,000 mcg (10,000 unit) 3,000 mcg PO DAILY 08/19/24 08/19/24 History
capsule
vitamin B complex 1 tab PO DAILY 08/19/24 08/19/24 History
vitamin E 268 mg (400 unit) capsule 268 mg PO DAILY 08/19/24 08/19/24 History
Review of Systems
-
History Source: Patient
All other systems: Negative unless noted
Physical Exam
Vital Signs
Temp Pulse Resp BP Pulse Ox
98.2 F 98 22 103/68 96
08/19/24 09:08 08/19/24 12:45 08/19/24 12:45 08/19/24 12:45 08/19/24 12:45
GEN: No distress, awake, Ox3
HEENT: supple, anicteric, mmm
LUNGS: CTA, no wheezes/rales
CV: Irregularly irregular, S1/S2, no murmur, rub or gallop
ABD: soft, BS+, NT/ND
EXT: No edema, clubbing or cyanosis
NEURO: Gross non-focal
SKIN: No rash, warm, dry, pink
Lab Results
08/19/24 11:03
08/19/24 09:22
Troponin I 0.048 ng/ml H* 08/19/24 09:45
Impression / Plan
-
Family Physician: Dannie Chavarria
Needle Molder Dr. Carlos Mcmullen, new patient consult with Dr. Lee Kumar
Impression:
Presents 08/19/2024 with chest tightness/discomfort and palpitations
Atrial fibrillation with rapid ventricular response, new diagnosis
Abnormal troponin
Hypothyroidism
Hyperlipidemia
Depression
Family history of premature CAD
Carotid stenosis
Cervical spine osteophyte/stenosis
Echo 08/19/2024: Pending
Plan:
-Presents 08/19/2024 with chest tightness/discomfort and palpitations. EKG demonstrates atrial fibrillation with rapid ventricular response. Chest x-ray unremarkable.
-Atrial fibrillation with rapid ventricular response, new diagnosis. Patient was on aspirin 81 mg as outpatient
-Heart rates improving with IV diltiazem drip. JACK/cardioversion 08/20/2024 if failure to convert in next 24 hours
-Currently on heparin drip. Will need eventual transition to oral anticoagulation.
-Abnormal troponin, initial 0.048. Trend to peak. Chest pain seems to be improving with rate control of A-fib.
-Check echocardiogram
-TSH 5.83 with known hypothyroidism on Synthroid
-Patient reports history of carotid stenosis although no significant bruit is noted on exam. Eventual consideration of carotid Doppler which could be done as outpatient. Continue on aspirin and rosuvastatin. Aspirin likely to be discontinued and
lieu of anticoagulation.
-Check lipids in am
-Prior outpatient cardiology records have been requested however not received at this time.
HPI: 08/19/2024:
Patient is a 74-year-old female with past medical history significant for family history of premature CAD, hypothyroidism, hyperlipidemia, carotid stenosis, depression who presented to emergency department 08/19/2024 after awakening with chest
discomfort/tightness associated with palpitations and rapid heartbeat. EKG on admission to emergency department showed atrial fibrillation with rapid ventricular response. Patient was given IV diltiazem bolus then started on IV diltiazem drip.
She was found to have elevated troponin at 0.048, TSH 5.83. Chest x-ray was unremarkable with no acute cardiopulmonary disease. She was placed on IV heparin drip. At time of this evaluation patient notes improvement of palpitations and chest
discomfort although at times there is still noticeable.
Patient has been followed by Dr. Carlos Mcmullen at comprehensive cardiology at [facility] for carotid stenosis and premature family history of coronary artery disease. She reports no prior history of atrial fibrillation or arrhythmias.
Patient reports she is in the process of changing cardiology groups and has a new appointment with Dr. Lee Kumar on 08/27/2024.
Data Reviewed
-
EKG: Report Reviewed by me, Discussed with Physician, Discussed with Nurse, Discussed with Patient and Discussed with Family
Radiology: Report Reviewed by me, Discussed with Physician, Discussed with Nurse, Discussed with Patient and Discussed with Family
Labs: Labs Reviewed by me, Discussed with Physician, Discussed with Nurse, Discussed with Patient and Discussed with Family
Old Records: Reviewed
[2024-08-19 15:53] LABS: Magnesium 2.2 mg/dl (1.6-2.3)
[2024-08-19 16:24] LABS: Troponin I 0.103 ng/ml
[2024-08-19] MEDS: CRESTOR 20 MG PO (18:07)
[2024-08-19 19:13] LABS: APTT 167.2 Sec (23.4-35.0)
[2024-08-19 20:03] LABS: Urine Albumin Negative (Neg - Trace); Urine Bilirubin Negative (Negative); Urine Character Clear (Clear); Urine Color Yellow; Urine Glucose Negative (Negative); Urine Ketone Negative (Negative); Urine Leukocyte Negative (Negative); Urine Nitrite Negative (Negative); Urine Occult Blood Negative (Negative); Urine Urobilinogen Negative (Neg - 1+)
[2024-08-19] MEDS: TYLENOL 650 MG PO (20:14)
[2024-08-19] MEDS: ESKALITH REGULAR RELEASE 300 MG PO (22:19)
[2024-08-19 23:20] LABS: Troponin I 0.083 ng/ml
--- NOTE | 2024-08-20 00:50 | PTCARENOTE ---
Received patient from ED, oriented patient to room. Cardizem and Heparin running as per documentation. Pt complains of 2/10 headache, PRN Tylenol administered as per SEP. Pt converted from A fib in the 90-100s to SR in the 60s. EKG obtained. PRE KINDERGARTEN TEACHER H
Nico notified, IV Cardizem discontinued. Call jordan within reach.
--- NOTE | 2024-08-20 02:07 | DOWNTIME ---
There was a [employer] Client Slitter And Rewinder Downtime on 08/20/2024 from 0100 to 08/20/2023 at 0205 . Downtime documentation of patient's care, including medication administrations, has been reconciled in the electronic record per guidelines. Refer to the
patient's paper chart under the miscellaneous tab to see printed paper medication records and downtime forms.
[2024-08-20 02:56] VITALS: BP 124/67
[2024-08-20 03:21] LABS: % Basophils 0.6 % (0-2); % Eosinophils 1.9 % (0-6); % Immature Granulocytes 0.2 % (0-0.5); % Lymphocytes 37.2 % (20.5-51.1); % Monocytes 7.8 % (1.7-9.3); % Neutrophils 52.3 % (42.2-75.2); Absolute Basophils 0.1 10^3/uL (0-0.2); Absolute Eosinophils 0.2 10^3/uL (0-0.7); Absolute Lymphocytes 3.1 10^3/uL (1.2-3.4); Absolute Monocytes 0.7 10^3/uL (0.1-0.6); Absolute Neutrophils 4.4 10^3/uL (1.4-6.5); Hematocrit 34.3 % (37.0-47.0); Hemoglobin 11.5 g/dL (12.0-16.0); Mean Corp Hgb Conc. 33.5 g/dL (33.0-37.0); Mean Corpuscular Hgb 32.1 pg (27.0-31.0); Mean Corpuscular Volume 95.8 fL (81.0-99.0); Mean Platelet Volume 10.2 fL (7.4-10.4); Nucleated Red Blood Cells % 0 %; Platelet Count 141 10^3/uL (130-400); Red Blood Cell Count 3.58 10^6/uL (4.20-5.40); Red Cell Dist. Width 13.2 % (11.5-14.5); White Blood Cell Count 8.4 10^3/uL (4.8-10.8)
[2024-08-20 03:33] LABS: APTT 58.6 Sec (23.4-35.0)
[2024-08-20 03:50] LABS: ALT (SGPT) 19 U/L (0-35); AST (SGOT) 26 U/L (14-36); Albumin 3.5 g/dl (3.5-5.0); Alkaline Phosphatase 44 U/L (38-126); Blood Urea Nitrogen 21 mg/dl (7-17); Calcium 8.8 mg/dl (8.4-10.2); Carbon Dioxide 22 mmol/L (22-30); Chloride 108 mmol/L (98-107); Estimated Creatinine Clearance 78 ml/min; Glucose 101 mg/dl (70-99); HDL Cholesterol 87 mg/dl; LDL Cholesterol, Calculated 51 mg/dl; Magnesium 2.2 mg/dl (1.6-2.3); Potassium 4.2 mmol/L (3.5-5.1); Sodium 137 mmol/L (135-145); Total Bilirubin < 0.1 mg/dl (0.2-1.3); Total Cholesterol 149 mg/dl (50-199); Total Protein 5.6 g/dl (6.3-8.2); Triglyceride 58 mg/dl (10-149); Troponin I 0.071 ng/ml; Very Low Density Lipoprotein 11 mg/dl (0-30); eGFR > 60.00
[2024-08-20 04:21] LABS: Hepatitis C Antibody Negative (Negative)
[2024-08-20 06:00] VITALS: BMI 27.1
[2024-08-20] MEDS: SYNTHROID 50 MCG PO (06:31)
[2024-08-20 07:55] VITALS: BP 129/78
[2024-08-20] MEDS: VITAMIN B-12 1000 MCG PO (08:08)
[2024-08-20] MEDS: ASPIR LOW (ENTERIC COATED) 81 MG PO (08:08)
--- NOTE | 2024-08-20 09:17 | W.PN.HOSP.TC ---
Today's Communication/Plan
-
monitor for recurrent chest tightness - if asymptomatic - d/c
Assessment / Plan
Assessment / Plan
74yo F with PMHx of ASCVD, hypothyroidism, HLD, biporar d/o came with acute onset of chest tightness and palpitations few hours before admission, that woke her up from the sleep. Found new onset Afib, spontaneously converted to sinus. Cardiology
recommneded outpatient stress test as patient already scheduled for appoitment on Jul. STarted on ELiquis, ASA stopped, cont statin, new toprol
A/P:
#New onset Afib, symptomatic, paroxysmal
#Non-ischemic myocardial injury 2/2 RVR
Serial trop, EKG with afib with RVR and non-specific ST abnormality
DOAC
ASA to stop upon d/c as per card
LDH 51
Diltizem drip completed. now on toprol
Cardiology consult
Echo: EF 55-60%, mo regional wall motion abnormality, no clinically significant valvular disease, mild pulmonary HTN
follow and replete electrolytes
#Resent sore throat
Chest XR without acute findings
COVID-19 and influenza neg
UA neg
#Hypothyroidism
#HLD
#B12 deficiency
#ASCVD
#Carotid stenosis
#Bipolar
cont home meds
check lithium level
TSH mildly elevated, since patient with new onset fib - will avoid increasing Synthroid. Possible elevated 2/2 recent upper acute URI
DVT ppx Eliquis
Full code
I have spent at least 39min reviewing chart, test results, communication with consultants and direct patient care
Anticipated Discharge: Within 24 hours
Subjective/Interval History
-
Date of Service: August 20, 2024
Objective Data
-
Labs:
Laboratory Results
01/22/25 01/22/25 01/22/25
03:05 03:06 09:45
WBC 8.4
Hgb 11.5 L
Hct 34.3 L
Plt Count 141
APTT 58.6 H Pending
Sodium 137
Potassium 4.2
Chloride 108 H
Carbon Dioxide 22
BUN 21 H
Creatinine 0.6
Glucose 101 H
Calcium 8.8
Total Bilirubin < 0.1 L
AST 26
ALT 19
Alkaline Phosphatase 44
Vital Signs:
Vital Signs
Temp Pulse Resp BP Pulse Ox
98.4 F 67 20 129/78 97
08/20/24 07:53 08/20/24 08:05 08/20/24 07:53 08/20/24 07:55 08/20/24 07:53
Review of Systems
-
History Source: Patient
All other systems: Reviewed and negative
Physical Exam
-
General: Comfortable
HEENT: Normocephalic
Respiratory: Clear to Auscultation
GI: Soft, Nontender and Nondistended
Genito-urinary: No Costovertebral Tender
Musculoskeletal: No Clubbing, No Cyanosis and No Edema
Neuro: Awake, Alert, Oriented and AO x 3
Psych: Calm
--- NOTE | 2024-08-20 09:19 | W.PN.CARDCBS ---
Addendum entered and electronically signed by Cedric Camp MD 08/20/24 09:52:
I saw and examined the patient.
The Ceo's note was reviewed and I agree with the note.
Comment: Briefly, 74-year-old woman presenting with chest tightness and palpitations found to be in atrial fibrillation with rapid ventricular response which is a new diagnosis for her
Maintained on diltiazem drip overnight and spontaneously converted to sinus rhythm around midnight without conversion pause
Stop diltiazem gtt
Start PO metoprolol and continue on discharge
Transition heparin gtt to Eliquis for cardioembolic prophylaxis
Low-level troponin elevation which peaked at 0.10 - suspect nonischemic myocardial injury troponin elevation in the setting of AFRVR
Chest tightness/palpitations resolved with HR control
ECG without obvious ischemic changes
Echocardiogram with NL LVEF and no regional wall motion abnormalities
As she is chest pain free plan to discharge on medical management with statin, beta ernesto and Eliquis
Tentative plan for outpatient stress test
Outpatient follow-up with Dr. Kumar is scheduled for later this month
Stable for discharge from my perspective
Original Note:
Today's Communication / Plan
-
toprol 25mg daily
eliquis 5mg BID
stop asa
protonix
continue crestor
OP stress test
OP cardiac follow up arranged
plan for DC to home today
Impression / Plan
-
Family Physician: Dannie Chavarria
Employee Development Director Dr. Carlos Mcmullen, new patient consult with Dr. Lee Kumar
Impression:
Presents 08/19/2024 with chest tightness/discomfort and palpitations
Atrial fibrillation with rapid ventricular response, new diagnosis status post spontaneous conversion to sinus rhythm 08/19/2024
Abnormal troponin, suspected nonischemic myocardial injury
Hypothyroidism
Hyperlipidemia
Depression
Family history of premature CAD
Carotid stenosis
Cervical spine osteophyte/stenosis
Echo 08/19/2024: EF 55 to 60%, mild concentric LVH, no regional wall motion abnormalities, mild MR, mild TR, PAP 30 to 35 mmHg
Plan:
-Patient presented with chest tightness and palpitations and found to be in A-fib with RVR, new diagnosis
-She spontaneously converted to sinus rhythm last evening and remains in sinus at this time
-Transition to p.o. Toprol 25 mg daily
-Transition IV heparin to Eliquis 5 mg twice daily. asa has been stopped. add PPI
-Troponin peaked at 0.1 and trending down. Her chest tightness improved with rate control. EKGs in both sinus rhythm and A-fib without evidence of acute ischemic abnormalities. Echocardiogram with results as above, EF preserved with no regional
wall motion abnormalities. Recommend outpatient stress testing
-LDL 51. continue crestor
-ambulate
-OP cardiac follow up arranged
-plan for DC to home later today
-d/w nursing
HPI: 08/19/2024:
Patient is a 74-year-old female with past medical history significant for family history of premature CAD, hypothyroidism, hyperlipidemia, carotid stenosis, depression who presented to emergency department 08/19/2024 after awakening with chest
discomfort/tightness associated with palpitations and rapid heartbeat. EKG on admission to emergency department showed atrial fibrillation with rapid ventricular response. Patient was given IV diltiazem bolus then started on IV diltiazem drip.
She was found to have elevated troponin at 0.048, TSH 5.83. Chest x-ray was unremarkable with no acute cardiopulmonary disease. She was placed on IV heparin drip. At time of this evaluation patient notes improvement of palpitations and chest
discomfort although at times there is still noticeable.
Patient has been followed by Dr. Carlos Mcmullen at comprehensive cardiology at [facility] for carotid stenosis and premature family history of coronary artery disease. She reports no prior history of atrial fibrillation or arrhythmias.
Patient reports she is in the process of changing cardiology groups and has a new appointment with Dr. Lee Kumar on 08/27/2024.
Progress Note - Employee Development Director
Subjective
Date of Service: August 20, 2024
reported some indigestion with swallowing pills this morning. no SOB, palpitations.
Objective
Labs:
08/20/24 03:06
08/20/24 03:06
Labs
Hgb 11.5 g/dL (12.0-16.0) L 08/20/24 03:06
Hct 34.3 % (37.0-47.0) L 08/20/24 03:06
Plt Count 141 10^3/uL (130-400) 08/20/24 03:06
APTT 58.6 Sec (23.4-35.0) H 08/20/24 03:05
Sodium 137 mmol/L (135-145) 08/20/24 03:06
Potassium 4.2 mmol/L (3.5-5.1) 08/20/24 03:06
BUN 21 mg/dl (7-17) H 08/20/24 03:06
Creatinine 0.6 mg/dL (0.6-1.0) 08/20/24 03:06
Glucose 101 mg/dl (70-99) H 08/20/24 03:06
Troponins
08/19/24 08/19/24 08/19/24
09:45 15:44 22:04
Troponin I 0.048 H* 0.103 H* D 0.083 H*
08/20/24
03:06
Troponin I 0.071 H*
Vital Signs and I&O:
Vital Signs
Temp Pulse Resp BP Pulse Ox
98.4 F 67 20 129/78 97
08/20/24 07:53 08/20/24 08:05 08/20/24 07:53 08/20/24 07:55 08/20/24 07:53
Vital Signs
Temp Pulse Resp BP Pulse Ox
98.4 F 67 20 129/78 97
08/20/24 07:53 08/20/24 08:05 08/20/24 07:53 08/20/24 07:55 08/20/24 07:53
Physical Exam
Physical Exam
GEN: No distress, awake, alert, oriented x3
HEENT: supple, anicteric, mmm, eomi
LUNGS: CTA B/L, no wheezes/rales
CV: Reg, S1/S2, no murmur
ABD: soft, BS+, NT/ND
EXT: No cyanosis, clubbing, edema
NEURO: Gross non-focal
SKIN: Warm, pink, dry. No rash
[2024-08-20] MEDS: PROTONIX 40 MG PO (09:31)
[2024-08-20] MEDS: TOPROL XL 25 MG PO (09:31)
[2024-08-20 09:32] VITALS: BP 156/79
[2024-08-20] MEDS: ELIQUIS 5 MG PO (09:32)
[2024-08-20 09:51] LABS: Glycohemoglobin (HgbA1c) 5.3 % (4.0-5.6)
--- NOTE | 2024-08-20 10:17 | PTCARENOTE ---
Pt is AOx3, no complaints of pain or discomfort. Heparin gtt stopped, eliquis started. SR on tele monitor, VSS. Possible discharge later today. Call jordan within reach.
[2024-08-20 10:26] LABS: Lithium 0.5 mmol/L (0.6-1.2)
--- NOTE | 2024-08-20 10:33 | CM ---
Priced Eliquis 5 mg BID thru insurance, [facility] [phone].
Patient has to meet annual deductible of $590. Therefore, first fill would be $594.08.
Estimated monthly cost after deductible is met is $116.12.
I can provide a free 30 d coupon but pt. would not be avail. for any further coupons.
Will notify care team and patient of above.
[2024-08-20 11:00] VITALS: BP 141/83
--- NOTE | 2024-08-20 14:41 | W.DCSUMMARY ---
Discharge Summary
Discharge Data
Date of Admission: 08/19/24
Date of Discharge: 08/20/24
-
Pending Results: No
Hospital Course
74yo F with PMHx of ASCVD, hypothyroidism, HLD, biporar d/o came with acute onset of chest tightness and palpitations few hours before admission, that woke her up from the sleep. Found new onset Afib, spontaneously converted to sinus. Infection w/u
neg. Cardiology recommneded outpatient stress test as patient already scheduled for appoitment on Jul. STarted on ELiquis, ASA stopped, cont statin, new toprol. No chest pain on the date of D/C so as per agreement with cardiology - discharge
and advice to keep her appt with cardiology. Medically stable for d/c home
I have spent at least 39min reviewing chart, test results, communication with consultants and direct patient care
Patient was managed for:
#New onset Afib, symptomatic, paroxysmal
#Non-ischemic myocardial injury 2/2 RVR
#Resent sore throat
#Hypothyroidism
#HLD
#B12 deficiency
#ASCVD
#Carotid stenosis
#Bipolar
Discharge Plan
-
Patient Disposition: Home (Routine Discharge)
Discharge Diagnosis/Procedures: new onset Afib
Diet: Low Sodium
Activity: As tolerated
Driving Restrictions: As prior to admission
Blood Work: TSH in 2-3 weeks with family doctor
Referrals:
Lee uKmar DO [Active] - 08/27/24 2:00 pm (You have a cardiology follow up appointment at the [place] office. Please call with questions.)
Dannie Chavarria MD [Family Provider] - in two to three weeks (repeat TSH)
Additional Discharge Medication Instructions: STOP aspirin as you are now on eliquis.
Prescriptions:
New
Eliquis 5 mg Tablet
5 mg PO BID Qty: 60 0RF
pantoprazole 40 mg Tablet,Delayed Release (Dr/Ec)
40 mg PO DAILY Qty: 30 0RF
metoprolol succinate 25 mg Tablet Extended Release 24 Hr
25 mg PO DAILY Qty: 30 0RF
Continued
cyanocobalamin (vitamin B-12) 1,000 mcg Tablet
1,000 mcg PO DAILY
therapeutic multivitamin Tablet
1 tab PO DAILY
calcium carbonate 500 mg calcium (1,250 mg) Tablet
500 mg PO DAILY
lithium carbonate 300 mg Capsule
300 mg PO HS
levothyroxine [Synthroid] 50 mcg Tablet
50 mcg PO DAILY
calcium-magnesium 750-465 mg Tablet
1 tab PO DAILY
lysine 500 mg Tablet
500 mg PO DAILY
rosuvastatin [Crestor] 20 mg Tablet
20 mg PO QPM
Cholest Off Plus 450 mg Capsule
450 mg PO DAILY
Discontinued
biotin 5 mg Capsule
5 mg PO DAILY
aspirin 81 mg Tablet,Delayed Release (Dr/Ec)
81 mg PO DAILY
vitamin A 3,000 mcg (10,000 unit) Capsule
3,000 mcg PO DAILY
ascorbic acid (vitamin C) [Vitamin C] 500 mg Tablet
500 mg PO DAILY
vitamin B complex [B Complete] Tablet
1 tab PO DAILY
vitamin E 268 mg (400 unit) Capsule
268 mg PO DAILY
calcium gluconate 500 mg Tablet
500 mg PO DAILY
cholecalciferol (vitamin D3) [Vitamin D3] 25 mcg (1,000 unit) Tablet
25 mcg PO DAILY
Discharge Orders:
Discharge Patient (As Directed); Ordered 08/20/24
Ordered By: Bob Roy
Care Plan Goals
Care Plan Goals:
Problem: Readiness for enhanced knowledge related to diagnosis and treatment plan
Goal: Understand your diagnosis and treatment plan needs, including medications if applicable.
Instructions: Know your diagnosis, underlying causes and treatment plan options, including medications if applicable. Consult with your health care team to learn about your diagnosis and treatment plan, including medications if applicable.
Discharge Date and Time
Print Language: NEPALESE
--- NOTE | 2024-08-20 14:55 | CM ---
CM following for DC planning needs.
Met w/ patient at bedside to complete initial assessment.
Pt. reports that she resides in a private, 1 story home w/ spouse.
Pt. is functionally indep. w/ ADLs, mobility without the use of any assisted device.
Reviewed cost of Eliquis. Pt. agreeable to cost and aware of the 30 d free coupon.
Anticipated DC plan is for home, no needs.
Will remain avail.
== END 2024-08-20 17:50 | disposition home or self-care (01) | DRG 309 ==
LOC: IVU 11:52
PROVIDERS: ADMITTING PHYSICIAN Internal Medicine; CONSULT PHYSICIAN Internal Medicine Cardiovascular Disease; EMERGENCY PHYSICIAN Emergency Medicine; FAMILY PHYSICIAN Family Medicine
DX: I48.91 Unspecified atrial fibrillation (principal); I5A Non-ischemic myocardial injury (non-traumatic); Z87.891 Personal history of nicotine dependence; E03.9 Hypothyroidism, unspecified; F31.9 Bipolar disorder, unspecified; I25.10 Atherosclerotic heart disease of native coronary artery without angina pectoris; Z11.52 Encounter for screening for COVID-19; E53.8 Deficiency of other specified B group vitamins; I65.29 Occlusion and stenosis of unspecified carotid artery; M25.78 Osteophyte, vertebrae; Z79.01 Long term (current) use of anticoagulants; Z79.82 Long term (current) use of aspirin
CPT/HCPCS: 71045; 80053; 80061; 80178; 81003; 83036; 83735; 84439; 84443; 84484; 85025; 85730; 86803; 87502; 87811; 93005; 93306; 96374; 99291

== ENCOUNTER → 2024-09-08 12:11 | Outpatient (REF) | payer MEDICARE, OTHER, SELFPAY | LOC: HWRCS 12:11 | PROVIDERS: ATTENDING PHYSICIAN Nuclear Medicine Nuclear Cardiology; FAMILY PHYSICIAN Family Medicine | DX: R06.09 Other forms of dyspnea (principal); I48.0 Paroxysmal atrial fibrillation | CPT/HCPCS: 78452; 93017; A9500 ==

== ENCOUNTER → 2024-11-11 11:40 | Outpatient (REF) | payer MEDICARE, OTHER, SELFPAY | LOC: RAD 11:40 | PROVIDERS: ATTENDING PHYSICIAN Nuclear Medicine Nuclear Cardiology; FAMILY PHYSICIAN Family Medicine | DX: I48.0 Paroxysmal atrial fibrillation (principal); I77.9 Disorder of arteries and arterioles, unspecified; I65.23 Occlusion and stenosis of bilateral carotid arteries | CPT/HCPCS: 93880 ==

== ENCOUNTER → 2025-02-14 13:39 | Outpatient (REF) | payer MEDICARE, OTHER, SELFPAY | LOC: MRI 3T 13:39 | PROVIDERS: ATTENDING PHYSICIAN Physician Assistant; FAMILY PHYSICIAN Nurse Practitioner | DX: M54.50 Low back pain, unspecified (principal) | CPT/HCPCS: 72148 ==

== ENCOUNTER → 2025-03-31 11:51 | Outpatient (REF) | payer MEDICARE, OTHER, SELFPAY | LOC: PAVMRI 11:51 | PROVIDERS: ATTENDING PHYSICIAN Student in an Organized Health Care Education/Training Program | DX: H43 Disorders of vitreous body (principal) | CPT/HCPCS: 70543; 70553; A9575 ==

== ENCOUNTER 2025-07-27 14:06 | Emergency (ER) | payer MEDICARE, OTHER, SELFPAY ==
[2025-07-27 14:24] VITALS: BP 123/68
[2025-07-27 15:16] LABS: Hematocrit 37.0 % (37.0-47.0); Hemoglobin 12.2 g/dL (12.0-16.0); Mean Corp Hgb Conc. 33.0 g/dL (33.0-37.0); Mean Corpuscular Volume 96.9 fL (81.0-99.0); Nucleated Red Blood Cells % 0 %; Platelet Count 187 10^3/uL (130-400); Red Cell Dist. Width 12.6 % (11.5-14.5)
[2025-07-27 15:26] LABS: ALT (SGPT) 17 U/L (0-35); AST (SGOT) 27 U/L (14-36); Albumin 4.1 g/dl (3.5-5.0); Alkaline Phosphatase 29 U/L (38-126); Blood Urea Nitrogen 15 mg/dl (7-17); Calcium 9.4 mg/dl (8.4-10.2); Carbon Dioxide 27 mmol/L (22-30); Chloride 103 mmol/L (98-107); Glucose 85 mg/dl (70-99); Lipase 151 U/L (23-300); Potassium 4.2 mmol/L (3.5-5.1); Sodium 136 mmol/L (135-145); Total Protein 6.4 g/dl (6.3-8.2); eGFR > 60.00
[2025-07-27 18:22] VITALS: BMI 27.3
[2025-07-27 18:33] VITALS: BP 141/77
[2025-07-27 19:00] VITALS: BP 132/78
[2025-07-27 20:15] VITALS: BP 143/77
[2025-07-27 20:23] LABS: Urine Character Clear (Clear)
--- NOTE | 2025-07-27 20:47 | ED.GENMED ---
History of Present Illness
General
Chief Complaint: Abdominal Symptoms
Source: patient
Exam Limitations: none
Time Seen by Provider: 07/27/25 17:53
Nursing documentation reviewed up to this point in time: agreed with
History of Present Illness
History of Present Illness:
Patient's emergency department with complaint of diarrhea x 2 weeks. She reports occasional mild abdominal cramping just prior to an episode of diarrhea. She denies any fever or chills. No history of similar symptoms. She has taken Imodium
intermittently over the course the past 2 weeks without any improvement. She is advised by her PCP today to come to the emergency department for evaluation. On arrival to ED she is awake alert and oriented, in no visible distress. Vital signs are
stable and she is afebrile.
Past History
Past History
ED Past Medical History: Hypercholesterolemia, Hypothyroidism and Other (Chronic Bronchitis, Sinusitis, )
ED Past Surgical History: Gynecological (Left Oophrectomy, Hysterectomy, ) and Other (Cataract, Facial surgery Plastic)
Social History
Tobacco: Former smoker
Alcohol: None
Drug: None
Personal:
Living: with family
Review of Systems
Review of Systems
Allergies reviewed?: Yes
All Other Systems: ROS reviewed and negative except as documented in HPI and ROS
Constitutional: Reports no symptoms
EENT: Reports no symptoms
Respiratory: Reports no symptoms
Cardiac: Reports no symptoms
ABD/GI: Reports diarrhea
: Reports no symptoms
Musculoskeletal: Reports no symptoms
Skin: Reports no symptoms
Neurological: Reports no symptoms
Psychiatric: Reports no symptoms
Phy Exam
General Physical Exam
General Presentation: well appearing and no apparent distress
General age: appears stated age
General Skin: warm and dry
General Habitus: normal
General Mental: alert
Cardiovascular Exam
Cardiovascular Exam: regular rate/rhythm
Pulmonary Exam
Pulmonary Exam: lungs clear and no respiratory distress
Gastrointestinal Exam
Gastrointestinal Exam: normal bowel sounds, non tender, soft, no organomegaly, no pulsatile mass, non distended and no cva tenderness
Musculoskeletal Exam
Musculoskeletal Exam: full ROM and neuro vasc intact
Skin Exam
Skin Exam: normal color, warm/dry and no rash
Psychiatric Exam
Psychiatric Exam: normal mood/affect
Course
Orders/Labs/Results
Orders:
Orders
07/27/25 14:41
Complete Blood Count/With Diff Urgent
Comprehensive Metabolic Panel Urgent
Lipase Urgent
07/27/25 18:21
CT Abd/pelvis W Iv Cont Urgent
Comment:
Reason For Exam: cramping diarrhea x 14 days
07/27/25 20:16
Urinalysis Reflex To Culture Urgent
Date Specimen was Collected: 07/27/25
Time Specimen was Collected: 20:01
Abnormal Lab Results
07/27/25
14:41
RBC 3.82 L 10^6/uL
(4.20-5.40)
MCH 31.9 H pg
(27.0-31.0)
MPV 11.0 H fL
(7.4-10.4)
Alkaline Phosphatase 29 L U/L
(38-126)
07/27/25 14:41
07/27/25 14:41
Vital Signs
Initial and Last Documented VS:
Initial Vital Signs
Temp Pulse Resp BP Pulse Ox
98.1 F 60 20 123/68 97
07/27/25 14:24 07/27/25 14:24 07/27/25 14:24 07/27/25 14:24 07/27/25 14:24
Last Documented Vital Signs
Temp Pulse Resp BP Pulse Ox
98.1 F 64 16 143/77 97
07/27/25 14:24 07/27/25 20:15 07/27/25 19:15 07/27/25 20:15 07/27/25 20:47
*Radiology
Radiology exam reviewed: radiology read reviewed
*Pulse Oximetry
SaO2: 97
Oxygen Mode of Delivery: Room air
Patient hypoxic: no
*Critical Care Note
Total Time (30-74mins, 75-104mins- exclusive of procedures): Not Applicable
Update Note
Update Note:
Patient to emergency department for complaint of diarrhea x 2 weeks. No associated fever or chills. She reports mild cramping prior to an episode of diarrhea. Vital signs are stable and she remains afebrile. Labs were reviewed WBC 7.1. CMP
unremarkable UA negative for UTI. CT of abdomen and pelvis completed. No acute findings. Incidental finding of 4 tiny hepatic lesions noted on CT which are believed to be cysts. No further imaging is indicated. She has had no episodes of
diarrhea while in ED. Discussed findings of labs and CT with patient. She will be discharged home at this point and will follow-up with her private GI provider as well as her PCP. She was given an outpatient lab prescription for stool culture, C.
difficile culture. She was given instructions on signs and symptoms to return to the emergency department she is agreeable to this plan.
ED Attending Note
-
Portions of this chart may have been created with voice recognition software.� Occasional wrong word or��sound alike� substitutions may have occurred due to the inherent limitations of voice recognition software.
Discharge Plan
Departure
Patient Disposition: Home (Routine Discharge)
Date of Disposition: 07/27/25
Time of Disposition: 20:49
Patient with high blood pressure during this ER visit?: No
Condition: Good
Covid-19: Not Applicable
Discharge Problem:
Diarrhea
Instructions: Diarrhea in teens and adults, [place] Diet
Prescriptions:
No Action
cyanocobalamin (vitamin B-12) 1,000 mcg Tablet
1,000 mcg PO DAILY
therapeutic multivitamin Tablet
1 tab PO DAILY
calcium carbonate 500 mg calcium (1,250 mg) Tablet
500 mg PO DAILY
lithium carbonate 300 mg Capsule
300 mg PO HS
levothyroxine [Synthroid] 50 mcg Tablet
50 mcg PO DAILY
calcium-magnesium 750-465 mg Tablet
1 tab PO DAILY
lysine 500 mg Tablet
500 mg PO DAILY
rosuvastatin [Crestor] 20 mg Tablet
20 mg PO QPM
Cholest Off Plus 450 mg Capsule
450 mg PO DAILY
Eliquis 5 mg Tablet
5 mg PO BID Qty: 60 0RF
pantoprazole 40 mg Tablet,Delayed Release (Dr/Ec)
40 mg PO DAILY Qty: 30 0RF
metoprolol succinate 25 mg Tablet Extended Release 24 Hr
25 mg PO DAILY Qty: 30 0RF
Referrals:
Elise Bowman CRNP [Family Provider, General]
Activity Restrictions/Additional Instructions:
Follow-up with your patient care secretary. Return to the emergency department for any changes in/worsening of your symptoms.
Interventions
Interventions:
*General Assessment Last Done: 07/27/25 14:24
*Neglect/Abuse Screening Last Done: 07/27/25 14:24
*ED COVID-19 Vaccine History Last Done: 07/27/25 18:22
*ED Influenza Vaccine History Last Done: 07/27/25 18:22
[facility] Risk Assessment Tool Last Done: 07/27/25 18:40
*Risk Screen - Suicide (C-SSRS) Last Done: 07/27/25 14:24
TH-Rklxap-Ohljfwvpuu Assessment Last Done: 07/27/25 18:24
Discharge Date and Time
Print Language: IRISH
[2025-07-27 21:00] VITALS: BP 140/78
== END 2025-07-27 21:25 | disposition home or self-care (01) ==
LOC: EMR 14:06
PROVIDERS: Emergency Medicine; Nurse Practitioner; EMERGENCY PHYSICIAN Emergency Medicine; FAMILY PHYSICIAN Nurse Practitioner
DX: R19.7 Diarrhea, unspecified (principal); Z87.891 Personal history of nicotine dependence; Z90.721 Acquired absence of ovaries, unilateral
CPT/HCPCS: 99285; 74177; 80053; 81003; 83690; 85025; Q9967

== ENCOUNTER → 2025-07-28 16:47 | Outpatient (REF) | payer MEDICARE, OTHER, SELFPAY | LOC: LAB 16:47 | PROVIDERS: ATTENDING PHYSICIAN Nurse Practitioner; FAMILY PHYSICIAN Nurse Practitioner | DX: Z09 Encounter for follow-up examination after completed treatment for conditions other than malignant neoplasm (principal) | CPT/HCPCS: 87045; 87046; 87324; 87427; 87449 ==